=== PATIENT | female | born 1980 | race Caucasian/White ===

== ENCOUNTER 2019-11-26 11:57 | Outpatient (CLI) | payer BC, OTHER | END 2019-11-26 23:59 | disposition home or self-care (01) | LOC: RAD 11:57 | PROVIDERS: ATTEND Surgery | DX: I51.7 Cardiomegaly (principal); I50.9 Heart failure, unspecified; Z95.0 Presence of cardiac pacemaker | CPT/HCPCS: 71045 ==

== ENCOUNTER 2020-04-29 11:41 | Day surgery (SDC) | payer BC, OTHER ==
[~2020-04-29] VITALS: Ht 142.2 cm; Wt 56.0 kg
[2020-04-29] VITALS (13 sets, daily range): BP systolic 100–122; BP diastolic 47–82
[~2020-04-29 11:41] MED LIST: ALBU8.5H8 INH; ASPI-1264 PO; FOLI-101 PO; cefazolin/dext.iso 2gm/50ml 50 ML IV ONE; famotidine 20mg tablet PO ONE; ringers solution, lacted 1,000 ML IV SCH
[2020-04-29 14:17] LABS: BASOPHILS % (AUTO) 0.6 % (0-1); EOSINOPHILS # (AUTO) 0.4 X10'3 (0-0.9); EOSINOPHILS % (AUTO) 7.6 % (0-6); LYMPHOCYTES # (AUTO) 2.1 X10'3 (1.1-4.8); LYMPHOCYTES % (AUTO) 37.2 % (21-51); MEAN CORPUSCULAR HEMOGLOBIN 26.4 PG (27.0-31.0); MEAN CORPUSCULAR HGB CONC 32.2 g/dL (33.0-36.5); MEAN CORPUSCULAR VOLUME 82.1 FL (78-98); MEAN PLATELET VOLUME 9.3 FL (7.4-10.4); MONOCYTES # (AUTO) 0.4 X10'3 (0-0.9); MONOCYTES % (AUTO) 6.7 % (2-12); NEUTROPHILS # (AUTO) 2.7 X10'3 (1.8-7.7); NEUTROPHILS % (AUTO) 47.9 % (42-75); PRE OP HEMATOCRIT 41.4 % (35.0-45.0); PRE OP HEMOGLOBIN 13.3 g/dL (12.0-16.0); PRE OP PLATELET COUNT 288 X10'3 (140-440); RED BLOOD COUNT 5.04 X10'6 (4.20-5.60); RED CELL DISTRIBUTION WIDTH 14.8 % (11.5-14.5)
[2020-04-29 14:25] LABS: HCG SERUM QL NEGATIVE
[2020-04-29 14:27] LABS: ALBUMIN 4.5 G/DL (3.4-5.0); ALBUMIN/GLOBULIN RATIO 1.2 (1.1-1.5); ALKALINE PHOSPHATASE 79 IU/L (46-116); BLOOD UREA NITROGEN 9 MG/DL (7-18); BUN/CREATININE RATIO 12.9 (6.6-38.0); CALCIUM 9.4 MG/DL (8.5-10.1); CHLORIDE 105 MMOL/L (99-107); PRE OP ALT 34 U/L (30-65); PRE OP ANION GAP 8 (8-16); PRE OP AST 24 U/L (10-37); PRE OP BILIRUB, TOTAL 0.5 MG/DL (0.0-1.0); PRE OP GLUCOSE 90 MG/DL (70-104); PRE OP POTASSIUM 3.9 MMOL/L (3.4-5.1); PRE OP SODIUM 143 MMOL/L (135-145); TOTAL CARBON DIOXIDE 29.6 MMOL/L (24-32); TOTAL PROTEIN 8.2 G/DL (6.4-8.2); eGFR > 90 ML/MIN
[2020-04-29] MEDS ORDERED: albuterol 2.5 MG/3 ML nebule NEB ONE (14:40)
[2020-04-29] MEDS ORDERED: morphine 4 MG/ML inj SYRINge IV PRN (15:00)
[2020-04-29] MEDS ORDERED: morphine 2 MG/ML inj. syringe IV PRN (15:00)
[2020-04-29] MEDS ORDERED: ringers solution, lacted 1,000 ML IV SCH (15:00)
[2020-04-29] MEDS ORDERED: meperidine/PF 25mg/ml syringe IV PRN ×2 (15:00)
[2020-04-29] MEDS ORDERED: proCHLORperazine 10 MG/2 ml inj IV PRN (15:00)
[2020-04-29] MEDS ORDERED: ondansetron/PF 4mg/2ml inj IV PRN (15:00)
[2020-04-29] MEDS ORDERED: BUPIVAcaine/PF 2.5 mg/ml (0.25%) 30ml vial ONE (15:11)
[2020-04-29] MEDS ORDERED: LIDOcaine 1% w/epiNEPHrine 1:200,000 30ml vial ONE ×2 (15:11→15:17)
[2020-04-29] MEDS ORDERED: midazolam 2 mg/2 ml injection ONE (15:20)
[2020-04-29] MEDS ORDERED: fentaNYL/PF 50MCG/1 ML 2ML syringe ONE (15:20)
[2020-04-29] MEDS ORDERED: dexamethasone sod phosphate 10mg/ml inj ONE (15:30)
[2020-04-29] MEDS ORDERED: ondansetron/PF 4mg/2ml inj ONE (15:30)
[2020-04-29] MEDS ORDERED: sevoflurane 250ml liquid IH ONE (15:30)
[2020-04-29] MEDS ORDERED: acetaminophen 1,000mg/100ml IV 100 ML IV ONE ×2 (16:23)
[2020-04-29] MEDS ORDERED: LIDOcaine 1%/PF 5ML 10 MG/ML VIAL ONE (16:23)
[2020-04-29] MEDS ORDERED: propofol inj 20 ML IV ONE (16:42)
--- NOTE | 2020-04-29 16:50 | NUR ---
Received from OR via [facility], accompanied by Anesthesiologist DR BLEVINS and report given by Anesthesiolgist. PT PLACED ON O2 AND MONIOR, S/P RELOCATE POCKET FOR PPM, GENERAL ANESTH, PT HAS LEFT UPPER CHEST DRESSING WITH STERI STRIPS CDI, PT IS NAUSEATED, WILL ADMINISTER ANTIEMETICS ORDERED. WILL CONT TO ASSESS.
[2020-04-29] MEDS: meperidine/PF 25mg/ml syringe IV PRN ×2 (17:14→17:38)
== END 2020-04-29 19:35 | disposition home or self-care (01) ==
LOC: PRE-OP 11:41 → PAS 19:35
PROVIDERS: ATTEND Surgery
DX: T82.847A Pain due to cardiac prosthetic devices, implants and grafts, initial encounter (principal); M19.90 Unspecified osteoarthritis, unspecified site; D64.9 Anemia, unspecified; I10 Essential (primary) hypertension; J44.9 Chronic obstructive pulmonary disease, unspecified; M41.9 Scoliosis, unspecified; Z88.5 Allergy status to narcotic agent; Z88.8 Allergy status to other drugs, medicaments and biological substances; Z87.01 Personal history of pneumonia (recurrent); Z98.890 Other specified postprocedural states; Z79.82 Long term (current) use of aspirin; Z79.899 Other long term (current) drug therapy; Z91.041 Radiographic dye allergy status; Y83.8 Other surgical procedures as the cause of abnormal reaction of the patient, or of later complication, without mention of misadventure at the time of the procedure; Y92.89 Other specified places as the place of occurrence of the external cause
CPT/HCPCS: 33222; 36415; 80053; 84703; 85025; 93005; 94640; J0131; J0780; J1100; J2175; J2250; J2405; J2704; J3010; J3490; J7120; A4215; A4618; A6258; A7000